=== PATIENT | male | born 1970 | race Caucasian/White ===

== ENCOUNTER 2017-12-28 07:21 | Emergency (ER) | payer BC ==
[2017-12-28] MEDS ORDERED: Ketorolac INJ* 30 MG/ML 1 ML VIAL IV ONE (07:36)
[2017-12-28] MEDS ORDERED: NS 0.9% 1000 ML* 1,000 ML IV ONE (07:36)
[2017-12-28 08:24] LABS: ABS Basophils 0.1 10^3/ul (0-0.2); ABS Eosinophils 0.4 10^3/ul (0-0.6); ABS Lymphocytes 2.3 10^3/ul (1.0-4.8); ABS Monocytes 0.7 10^3/ul (0-0.8); ABS Neutrophils 5.4 10^3/ul (1.5-7.7); ABS Nucleated RBC 0 10^3/ul; Eosinophil % 4.2 % (0-6); Hematocrit 46 % (42-52); Hemoglobin 15.6 g/dl (14.0-18.0); Mean Corpuscular HGB Conc 34 g/dl (31-36); Mean Corpuscular Hemoglobin 30 pg (27-31); Mean Corpuscular Volume 87 fL (80-94); Mean Platelet Volume 7 um3 (7.4-10.4); Nucleated Red Blood Cells % 0.1; Platelet Count 284 10^3/ul (150-450); Red Blood Count 5.27 10^6/ul (4.0-5.4); Red Cell Distribution Width 14 % (10.5-15); White Blood Count 8.9 10^3/ul (3.5-10.8)
--- NOTE | 2017-12-28 08:31 | RAD ---
INDICATION: Left flank pain with radiation to the left lower quadrant. COMPARISON: There are no prior studies available for comparison. TECHNIQUE: A CT scan of the abdomen and pelvis was performed without intravenous or oral contrast. Contiguous axial sections were obtained from the lung bases through the symphysis pubis. Images were reconstructed in the coronal and sagittal planes. FINDINGS: There is mild dependent bilateral lower lobe subsegmental atelectasis. No pleural effusion is present. The liver and spleen are mildly enlarged. The liver is decreased in attenuation consistent with fatty infiltration without significant focal abnormality on this noncontrast study. No calcified gallstones are seen. The pancreas appears to be within normal limits. The adrenal glands and kidneys are normal in size. No renal calculi or hydronephrosis is seen. There appear to be several left renal cysts including a dominant complex cyst arising from the midportion of the kidney measuring 5.3 x 4.9 cm in size. This has a thin rim of peripheral calcification along its posterior aspect. No ureteral or bladder calculi are seen. The aorta is normal in caliber without significant calcific plaque. No significant enlarged retroperitoneal lymph nodes are seen. There is a small hiatal hernia. The stomach, small and large bowel appear nondistended. The appendix is within normal limits. There is mild descending and sigmoid diverticulosis without evidence for diverticulitis. No free intraperitoneal air or fluid is seen. No significant focal osseous abnormality is seen. IMPRESSION: 1. NO EVIDENCE FOR ACUTE FINDING OR CAUSE FOR THE PATIENT'S ABDOMINAL PAIN IS SEEN. 2. THERE IS A COMPLEX LEFT RENAL CYST. RECOMMEND AN OUTPATIENT MULTIPHASE CONTRAST-ENHANCED CT STUDY OF THE KIDNEYS TO EXCLUDE A MALIGNANT LESION. 3. MILD HEPATOSPLENOMEGALY AND HEPATIC STEATOSIS.
[2017-12-28 08:40] LABS: EGFR Non-African American 76.4 (>60)
[2017-12-28 09:45] VITALS: BP 129/84
--- NOTE | 2017-12-28 17:00 | ED ---
Brad Zaman Thomas, scribed for Maurizio Olmstead MD on 12/28/17 at 0734 . Abdominal Pain/Male - HPI Summary HPI Summary: The patient is a 47 year old male complaining of LLQ pain that began yesterday at 18:00. The pain radiates to his back. This is a new pain for him. The pain is rated 2/10. The pain is aggravated by standing up and deep breaths. The patient denies nausea, vomiting, diarrhea, and constipation. Past medical history includes kidney stones (although the patient notes that his current pain is different from prior kidney stone pain). He denies a history of constipation. - History of Current Complaint Chief Complaint: EDAbdPain Stated Complaint: ABD PAIN, FLANK PAIN Time Seen by Provider: 12/28/17 07:29 Hx Obtained From: Patient Onset/Duration: Lasting Days - 1, Still Present Timing: Constant Severity Currently: Mild Pain Intensity: 2 Pain Scale Used: 0-10 Numeric Location: Discrete At: LLQ Radiates: Yes Radiates to: Back Character: Other: - new pain for him Aggravating Factor(s): Movement, Deep Breaths Alleviating Factor(s): Nothing Associated Signs And Symptoms: Negative: Fever, Constipation, Nausea, Vomiting, Diarrhea - Allergies/Home Medications Allergies/Adverse Reactions: Allergies Allergy/AdvReac Type Severity Reaction Status Date / Time No Known Allergies Allergy Verified 09/16/17 07:31 PMH/Surg Hx/FS Hx/Imm Hx Cardiovascular History: Reports: Hx Hypertension History: Reports: Hx Kidney Stones Opthamlomology History: Denies: Hx Legally Blind EENT History: Denies: Hx Deafness Infectious Disease History: No Infectious Disease History: Denies: Traveled Outside the [place] in Last 30 Days - Family History Known Family History: Positive: Hypertension - Social History Occupation: Employed Full-time Alcohol Use: Rare Substance Use Type: Reports: None Smoking Status (MU): Never Smoked Tobacco Review of Systems Negative: Fever Positive: Abdominal Pain. Negative: Vomiting, Diarrhea, Nausea, Other - constipation All Other Systems Reviewed And Are Negative: Yes Physical Exam - Summary Physical Exam Summary: VITAL SIGNS: Reviewed. GENERAL: Patient is a well-developed and nourished male who is lying comfortable in the stretcher. Patient is not in any acute respiratory distress. HEAD AND FACE: Normocephalic and atraumatic. EYES: PERRLA, EOMI x 2, No injected conjunctiva. EARS: Hearing grossly intact. Ear canals and tympanic membranes are WNL. MOUTH: Oropharynx within normal limits. NECK: Supple, trachea is midline, no adenopathy, no JVD. CHEST: Symmetric, no tenderness at palpation LUNGS: Clear to auscultation bilaterally. No wheezing or crackles. CVS: RRR, S1 and S2 present, no murmurs or gallops appreciated. ABDOMEN: Soft. LLQ tenderness. No signs of distention. Positive bowel sounds. No rebound no guarding, and no masses palpated. No abdominal bruit or pulsations. BACK: Positive CVA tenderness on the left side. EXTREMITIES: FROM in all major joints, no edema, no cyanosis or clubbing. NEURO: Alert and oriented x 3. No acute neurological deficits. Speech is normal. SKIN: Dry and warm Triage Information Reviewed: Yes Vital Signs On Initial Exam: Initial Vitals Temp Pulse Resp BP Pulse Ox 97.8 F 78 18 146/85 100 12/28/17 07:22 12/28/17 07:22 12/28/17 07:22 12/28/17 07:22 12/28/17 07:22 Vital Signs Reviewed: Yes Diagnostics - Vital Signs Vital Signs Temp Pulse Resp BP Pulse Ox 12/28/17 07:22 97.8 F 78 18 146/85 100 - Laboratory Result Diagrams: 12/28/17 07:57 12/28/17 07:57 Lab Statement: Any lab studies that have been ordered have been reviewed, and results considered in the medical decision making process. - CT CT Abd/Pel CT Interpretation: No Acute Changes - 1. NO EVIDENCE FOR ACUTE FINDING OR CAUSE FOR THE PATIENT'S ABDOMINAL PAIN IS SEEN. 2. THERE IS A COMPLEX LEFT RENAL CYST. RECOMMEND AN OUTPATIENT MULTIPHASE CONTRAST-ENHANCED CT STUDY OF THE KIDNEYS TO EXCLUDE A MALIGNANT LESION. 3. MILD HEPATOSPLENOMEGALY AND HEPATIC STEATOSIS. Dr. Olmstead has reviewed this report. CT Interpretation Completed By: Radiologist - EKG 07:48 Cardiac Rate: NL EKG Rhythm: Sinus Rhythm - at 63 BPM EKG Interpretation: No ST elevations Abdominal Pain Fem Course/Dx - Course Assessment/Plan: The patient is a 47 year old male complaining of LLQ pain that began yesterday at 18:00. The pain radiates to his back. This is a new pain for him. The pain is aggravated by standing up and deep breaths. Test results are without significant abnormalities. There is no elevated WBC, and the CRP is only 15. CT Abd/Pel shows 1. NO EVIDENCE FOR ACUTE FINDING OR CAUSE FOR THE PATIENT'S ABDOMINAL PAIN IS SEEN. 2. THERE IS A COMPLEX LEFT RENAL CYST. RECOMMEND AN OUTPATIENT MULTIPHASE CONTRAST-ENHANCED CT STUDY OF THE KIDNEYS TO EXCLUDE A MALIGNANT LESION. 3. MILD HEPATOSPLENOMEGALY AND HEPATIC STEATOSIS. Since there is no diverticulitis, the patient will be discharged home to follow up with primary care. He was given Toradol for the pain, and his symptoms improved. The patient is ambulating without any pain. I instructed the patient to return to the ED if his symptoms return. - Diagnoses Provider Diagnoses: Abdominal pain Discharge - Discharge Plan Condition: Stable Disposition: HOME Patient Education Materials: Abdominal Pain (ED) Referrals: Eugenio Flannery MD [Primary Care Provider] - 3 Days Additional Instructions: Follow up with your primary care physician in three days. Return to the emergency department for any new or worsening symptoms. The documentation as recorded by the Brad singh Thomas accurately reflects the service I personally performed and the decisions made by , Maurizio Olmstead MD.
== END 2017-12-28 09:45 | disposition home or self-care (01) ==
LOC: ED 07:21
DX: R10.32 Left lower quadrant pain (principal); N28.1 Cyst of kidney, acquired; R16.2 Hepatomegaly with splenomegaly, not elsewhere classified; K76.0 Fatty (change of) liver, not elsewhere classified
CPT/HCPCS: 36415; 74176; 80053; 83690; 84484; 85025; 86140; 93005; 96361; 96374; 99283; J1885